=== PATIENT | male | born 1975 | race Caucasian/White ===

== ENCOUNTER 2020-12-11 11:23 | Emergency (ER) | payer MEDICAID ==
[2020-12-11] MEDS ORDERED: Sodium Chloride 0.9% 1000 ML 1,000 ML IV SCH (12:15)
[2020-12-11] MEDS ORDERED: Sodium Chloride 0.9% 1000 ML 1,000 ML ONE (12:20)
--- NOTE | 2020-12-11 12:38 | XRAY ---
Indication: Short of breath. Exposure to Covid 19. Comparison: None Portable chest hyperinflated and clear. Heart and mediastinal structures within normal limits. Bony thorax intact. Impression: Nonacute hyperinflated chest.
[2020-12-11 12:54] LABS: INR 1.09 (0.8-3.0); PROTIME 12.9 SECONDS (9.4-12.5)
[2020-12-11 13:00] LABS: ALBUMIN 4.5 g/dL (3.5-5.0); ALKALINE PHOSPHATASE 95 U/L (38-126); ANION GAP 16.8 MEQ/L (5-15); BLOOD UREA NITROGEN 8 mg/dL (9-20); CHLORIDE 99 mmol/L (98-107); Calcium 8.8 mg/dL (8.4-10.2); Carbon Dioxide 24 mmol/L (22-30); Creatinine 1 0.87 mg/dL (0.66-1.25); EST GLOMERULAR FILTRATION RATE > 60.0 ML/MIN; Glucose 106 mg/dL (74-106); LDH-LACTATE DEHYDROGENASE 179 U/L (120-246); Potassium 4.5 mmol/L (3.5-5.1); SGOT/AST 37 U/L (17-59); SGPT/ALT 35 U/L (0-50); SODIUM 136 mmol/L (137-145); Total Protein 7.8 g/dL (6.3-8.2)
--- NOTE | 2020-12-11 13:02 | ERPHSYRPT ---
- History of Present Illness Time Seen by Provider: 12/11/20 12:15 Source: patient Exam Limitations: no limitations Patient Subjective Stated Complaint: pt reports that he is a close contact of his parents that are both covid positive, his father is on a vent at [email or web address], his initial covid test was negative, he now has an increase of s/s which include, headache, cough, diarrhea, throat, tachycardia, pt reports that today he may have had a seizure, reports history of seizure. Triage Nursing Assessment: pt is aox3, visibly upset, crying during exam, afebrile, resps easy and non labored, cap refill < 3 seconds, radial pulses strong and equal, pt skin pink warm dry. Physician History: This is a 45-year-old white male who lives at home with his parents and both parents tested positive for COVID-19 virus. The patient's father is very sick on a ventilator at another facility. Patient's mom was also diagnosed with Co vid positive test result on 12/03/2020. Patient has a history of hypertension and seizure disorder on Tegretol. Patient has had increasing/worsening symptoms of headache, cough, diarrhea, sore throat. His mom came into his room and told him that she is having worsening shortness of breath and cough and wants to be taken to the hospital emergency room. When he got up he passed out and mom witnessed a seizure episode. Patient does not recall the events. He has not had a seizure breakthrough in greater than 15 years. He presents to the emergency department while on room air with an oxygen saturation of 98%. Timing/Duration: today Cough Quality/Degree: mild Possible Cause: no prior episodes Modifying Factors: Improves With: coughing Associated Symptoms: cough, headache, muscle aches, sore throat, No fever, No chest pain/soreness Allergies/Adverse Reactions: No Known Drug Allergies Allergy (Unverified 12/11/20 12:14) Home Medications: Carbamazepine [Equetro] 100 mg PO TID 12/11/20 [History] lisinopriL [Lisinopril] 10 mg PO DAILY 12/11/20 [History] Hx Tetanus, Diphtheria Vaccination/Date Given: Yes Hx Influenza Vaccination/Date Given: No Hx Pneumococcal Vaccination/Date Given: No Immunizations Up to Date: Yes Travel Risk - International Travel Have you traveled outside of the country in past 3 weeks: No - Coronavirus Screening Are you exhibiting any of the following symptoms?: Yes Symptoms: Cough: New Onset, Shortness of Breath, Headaches/Body Aches/Fatigue Close contact with a COVID-19 positive Pt in past 14-21 Days: Yes - Vaccine Status Have you recieved a Covid-19 vaccination: No - Review of Systems Constitutional: No Symptoms Eyes: No Symptoms Ears, Nose, & Throat: Throat Pain Respiratory: Cough Cardiac: No Symptoms Abdominal/Gastrointestinal: Diarrhea, No Abdominal Pain, No Nausea, No Vomiting Genitourinary Symptoms: No Symptoms Musculoskeletal: No Symptoms Skin: No Symptoms Neurological: No Symptoms Psychological: No Symptoms Endocrine: No Symptoms Hematologic/Lymphatic: No Symptoms Immunological/Allergic: No Symptoms All Other Systems: Reviewed and Negative - Past Medical History Pertinent Past Medical History: Yes Neurological History: Seizures Cardiac History: Hypertension - Past Surgical History Past Surgical History: Yes Other Surgical History: hernia repair as - Social History Smoking Status: Never smoker Exposure to second hand smoke: No Drug Use: none Patient Lives Alone: No - Nursing Vital Signs Nursing Vital Signs: Initial Vital Signs Temperature 97.7 F 12/11/20 12:00 Pulse Rate 83 12/11/20 12:00 Respiratory Rate 20 12/11/20 12:00 Blood Pressure 139/85 12/11/20 12:00 O2 Sat by Pulse Oximetry 100 12/11/20 12:00 Pain Scale Pain Intensity 0 - Physical Exam General Appearance: no apparent distress, alert, anxiety Eye Exam: PERRL/EOMI, eyes nml inspection Ears, Nose, Throat Exam: normal ENT inspection, moist mucous membranes Neck Exam: normal inspection, non-tender, supple, full range of motion Respiratory Exam: normal breath sounds, lungs clear, airway intact, No chest tenderness, No respiratory distress Cardiovascular Exam: regular rate/rhythm, normal heart sounds, normal peripheral pulses Gastrointestinal/Abdomen Exam: soft, normal bowel sounds, No tenderness Rectal Exam: not done Back Exam: normal inspection, normal range of motion, No CVA tenderness Extremity Exam: normal inspection, normal range of motion, pelvis stable Neurologic Exam: alert, oriented x 3, cooperative, 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 No comparison EKG available) Ordered Tests: Active Orders 24 hr Category Date Time Status Sorting Livestock Worker STAT Care 12/11/20 12:03 Active Sorting Livestock Worker STAT Care 12/11/20 12:05 Completed EKG-ER Only STAT Care 12/11/20 12:03 Active EKG-ER Only STAT Care 12/11/20 12:03 Completed IV Insertion STAT Care 12/11/20 12:03 Active IV Insertion STAT Care 12/11/20 12:03 Completed Isolation, Initiate & Maintain STAT Care 12/11/20 12:03 Active Pulse Oximetry (ED) ROUTINE Care 12/11/20 12:04 Active CHEST 1 VIEW (PORTABLE) Stat Exams 12/11/20 12:04 Completed HEAD WITHOUT CONTRAST [CT] Stat Exams 12/11/20 12:54 Completed CMP Stat Lab 12/11/20 12:30 Completed D-DIMER QUANTITATIVE Stat Lab 12/11/20 12:30 Completed Ferritin Stat Lab 12/11/20 12:30 Completed LDH-LACTATE DEHYDROGENASE Stat Lab 12/11/20 12:30 Completed Lactic Acid Stat Lab 12/11/20 12:33 Completed [place] Screen Stat Lab 12/11/20 12:30 Completed PROTIME WITH INR Stat Lab 12/11/20 12:30 Completed TROPONIN Q3H Lab 12/11/20 12:30 Completed TROPONIN Q3H Lab 12/11/20 15:15 Ordered TROPONIN Q3H Lab 12/11/20 18:15 Ordered TROPONIN Q3H Lab 12/11/20 21:15 Ordered TROPONIN Q3H Lab 12/12/20 00:15 Ordered Medication Summary Generic Name Dose Route Start Last Admin Trade Name Freq PRN Reason Stop Dose Admin Sodium Chloride 1,000 mls @ 50 mls/hr 12/11/20 12:15 12/11/20 12:40 Sodium Chloride 0.9% 1000 Ml IV 01/10/21 12:14 50 mls/hr .Q20H KIRK Administration Lab/Rad Data: Laboratory Result Diagrams 12/11/20 12:30 Laboratory Results 12/11/20 12/11/20 12/11/20 Range/Units 12:33 12:31 12:30 PT (9.4-12.5) SECONDS INR (0.8-3.0) D-Dimer (215-500) ng/mL Sodium (137-145) mmol/L Potassium (3.5-5.1) mmol/L Chloride (98-107) mmol/L Carbon Dioxide (22-30) mmol/L Anion Gap (5-15) MEQ/L BUN (9-20) mg/dL Creatinine (0.66-1.25) mg/dL Estimated GFR ML/MIN Glucose (74-106) mg/dL Lactic Acid 0.7 (0.4-2.0) Calcium (8.4-10.2) mg/dL Ferritin (17.9-464) ng/mL Total Bilirubin (0.2-1.3) mg/dL AST (17-59) U/L ALT (0-50) U/L Alkaline Phosphatase (38-126) U/L Lactate Dehydrogenase (120-246) U/L Troponin I (0.000-0.034) ng/mL Serum Total Protein (6.3-8.2) g/dL Albumin (3.5-5.0) g/dL Monoscreen NEGATIVE (Negative) SARS-CoV-2 (PCR) POSITIVE A (NEGATIVE) 12/11/20 12/11/20 12/11/20 Range/Units 12:30 12:30 12:30 PT 12.9 H (9.4-12.5) SECONDS INR 1.09 (0.8-3.0) D-Dimer 663 H* (215-500) ng/mL Sodium (137-145) mmol/L Potassium (3.5-5.1) mmol/L Chloride (98-107) mmol/L Carbon Dioxide (22-30) mmol/L Anion Gap (5-15) MEQ/L BUN (9-20) mg/dL Creatinine (0.66-1.25) mg/dL Estimated GFR ML/MIN Glucose (74-106) mg/dL Lactic Acid (0.4-2.0) Calcium (8.4-10.2) mg/dL Ferritin 270 (17.9-464) ng/mL Total Bilirubin (0.2-1.3) mg/dL AST (17-59) U/L ALT (0-50) U/L Alkaline Phosphatase (38-126) U/L Lactate Dehydrogenase (120-246) U/L Troponin I < 0.012 (0.000-0.034) ng/mL Serum Total Protein (6.3-8.2) g/dL Albumin (3.5-5.0) g/dL Monoscreen (Negative) SARS-CoV-2 (PCR) (NEGATIVE) 12/11/20 Range/Units 12:30 PT (9.4-12.5) SECONDS INR (0.8-3.0) D-Dimer (215-500) ng/mL Sodium 136 L (137-145) mmol/L Potassium 4.5 (3.5-5.1) mmol/L Chloride 99 (98-107) mmol/L Carbon Dioxide 24 (22-30) mmol/L Anion Gap 16.8 H (5-15) MEQ/L BUN 8 L (9-20) mg/dL Creatinine 0.87 (0.66-1.25) mg/dL Estimated GFR > 60.0 ML/MIN Glucose 106 (74-106) mg/dL Lactic Acid (0.4-2.0) Calcium 8.8 (8.4-10.2) mg/dL Ferritin (17.9-464) ng/mL Total Bilirubin 0.40 (0.2-1.3) mg/dL AST 37 (17-59) U/L ALT 35 (0-50) U/L Alkaline Phosphatase 95 (38-126) U/L Lactate Dehydrogenase 179 (120-246) U/L Troponin I (0.000-0.034) ng/mL Serum Total Protein 7.8 (6.3-8.2) g/dL Albumin 4.5 (3.5-5.0) g/dL Monoscreen (Negative) SARS-CoV-2 (PCR) (NEGATIVE) - Progress Progress: improved, re-examined Air Movement: good Progress Note: 12/11/20 14:34 Chest x-ray is negative for any acute cardiopulmonary process. CAT scan of the head without contrast shows no acute intracranial abnormality. Medical decision making: This patient has COVID-19 infection. His D-dimer is only slightly elevated as would be expected in a patient with COVID-19 infecti on. I do not feel that the patient is in need of a CAT scan of the chest with contrast. I think his chance of having pulmonary emboli is low Blood Culture(s) Obtained: Yes - Departure Departure Disposition: Home Clinical Impression: COVID-19 virus infection Condition: Stable Critical Care Time: No Referrals: QUYNH BROWN NP [Primary Care Provider] - Additional Instructions: Drink plenty of fluids. Take your medication as prescribed. Follow-up with your neurologist and primary care physician tomorrow to make arrangements for further evaluation. Quarantine yourself as instructed.
--- NOTE | 2020-12-11 13:20 | XRAY ---
Indication: Syncope. Seizure. Multiple contiguous axial images obtained through the head without contrast. Comparison: None Normal appearing brain parenchyma, ventricles, and bony calvarium. Mild mucosal thickening of both ethmoid and both maxillary sinuses. Mastoid air cells are clear. Impression: Paranasal sinus disease. Remaining CT head without contrast exam is normal.
[2020-12-11 15:21] VITALS: BP 145/86; PULSE 84; O2SAT 98
== END 2020-12-11 15:20 | disposition home or self-care (01) ==
LOC: ED 11:23
DX: U07.1 COVID-19 (principal)
CPT/HCPCS: 36000; 36415; 70450; 71045; 80053; 82728; 83605; 83615; 84484; 85379; 85610; 86308; 93005; 93041; 94760; 99284; U0003